=== PATIENT | female | born 1995 | race Caucasian/White ===

== ENCOUNTER 2023-05-08 16:39 | Outpatient (CLI) | payer OTHER, SELFPAY ==
[2023-05-08 17:10] LABS: Appearance Urine Clear (Clear); Bilirubin Urine Negative (Negative); Blood Urine Negative (Negative); Color Urine Yellow (Yellow); Glucose Urine Negative (Negative); Ketones Urine 4+ (Negative); Leukocyte Esterase Urine 1+ (Negative); Nitrite Urine Negative (Negative); Protein Urine Negative (Negative); Urobilinogen Urine 0.2 (0.2-1.0); pH Urine 6.5 (5.0-8.5)
[2023-05-08 17:30] LABS: Bacteria Urine Moderate; RBC Urine 0-2 (0-2); Squamous Epithelial Cell Urine Many (None-Few)
--- NOTE | 2023-05-08 18:26 | PM.OBLDTN ---
Documented by User: Sav Wiseharper 05/08/23 20:01 OB - Triage/Final Diagnosis Visit Information Time Seen by Provider: 18:27 Date Seen: 05/08/23 Date of evaluation: 05/17/23 Narrative: The patient is a 27 year old 1 para 0 at 35 3/7 weeks gestation by US, who presents to triage with painful contractions which has increased in intensity and frequency since 1 am this morning. She denies LOF, decreased movements and vaginal bleeding. She reports frequent urination and pressure in her bladder with urination. She denies dysuria, vaginal discharge and itching. She had a busy weekend with baby shower and has not been sleeping well lately. In triage patient was antonino every 2-4 min and palpates mild. NST- reactive. UA Pending culture. Vaginitis panel showed Yeast infection. Recommended OTC clotrimazole vaginal cream for 7 days. Pt was discharge home with instruction to come back to triage with worsening contractions, LOF or decreased movements. Evaluation Laboratory results: Laboratory Tests 05/08/23 05/08/23 05/08/23 Range/Units 18:13 17:59 17:03 Urine Color Yellow (Yellow) Urine Appearance Clear (Clear) Urine pH 6.5 (5.0-8.5) Ur Specific [place] 1.020 (1.000-1.030) Urine Protein Negative (Negative) Urine Glucose (UA) Negative (Negative) Urine Ketones 4+ A (Negative) Urine Blood Negative (Negative) Urine Nitrite Negative (Negative) Urine Bilirubin Negative (Negative) Urine Urobilinogen 0.2 (0.2-1.0) Ur Leukocyte Esterase 1+ A (Negative) Urine RBC 0-2 (0-2) Urine WBC 10-25 A (0-5) Ur Squamous Epith Cells Many A (None-Few) Urine Bacteria Moderate A (None) Vaginal Bacterial Vaginosis Pending Vaginal Nathalie species Pending Vag C. glabrata/krusei Pending Vag T. vaginalis Pending Group B Strep DNA Pending Fetus (Single) Heart Rate Baseline: 135 Final Diagnosis (1) Threatened labor: Status: Acute (2) Nathalie albicans infection: Status: Acute Documented by User: Larissa Hernandez CNM 05/08/23 21:19 OB - Triage/Final Diagnosis Visit Information Narrative: The patient is a 27 year old 1 para 0 at 35 3/7 weeks gestation by US, who presents to triage with painful contractions which has increased in intensity and frequency since 1 am this morning. She denies LOF, decreased movements and vaginal bleeding. She reports frequent urination and pressure in her bladder with urination. She denies dysuria, vaginal discharge and itching. She had a busy weekend with baby shower and has not been sleeping well lately. In triage patient was antonino every 2-4 min and palpates mild. NST- reactive. UA Pending culture, will call to discuss antibiotics as needed. Vaginitis panel showed Yeast infection. Recommended OTC clotrimazole vaginal cream for 7 days. Pt was discharge home with instruction to come back to triage with worsening contractions, LOF or decreased movements. I,?Larissa Hernandez APRN, CNM, was present for visit and have reviewed and agree with documentation by the Certified Nurse Midwifery Student. Final Diagnosis (1) Threatened labor: Status: Acute (2) Nathalie albicans infection: Status: Acute
[2023-05-08 19:03] LABS: Bacterial Vaginosis* NOT DETECTED (No Detected); Candida species DETECTED (No Detected)
[2023-05-08 19:04] LABS: Candida glab/krus NOT DETECTED (No Detected); Trichomonas vaginalis NOT DETECTED (No Detected)
--- NOTE | 2023-05-08 19:27 | PC.OBNST ---
NST Note NST Note Start: 05/08/23 17:07 Freq: ONCE Status: Active Protocol: Document 05/08/23 17:07 [facility] (Rec: 05/08/23 19:27 [facility] [id number]) NST Note 1 Para (# of births) 0 EDC 06/09/23 Gestational Age In Weeks & Days 35 Weeks & 3 Days Patient Presented with Complaint(s) of Contractions/cramping Other Complaints positive for yeast infection Reactive Yes Appropriate for Gestational Age Yes ALE Lo RN Date 05/08/23 Reactive Yes Appropriate for Gestational Age Yes ALE Keyes Date 05/08/23 OB NST charge Yes Complete NST Note via Write Note Yes The provider's electronic signature indicates the NST is reactive/appropriate for gestational age. *Note to provider: If an addendum is required, open the patient's chart and click on the note under the Nurse/Allied Health tab.
[2023-05-09 15:46] LABS: Strep B DNA Probe Negative (Negative)
[2023-05-09 16:08] LABS: Strep B Susceptibility Needed? No
== END 2023-05-08 19:29 | disposition home or self-care (01) ==
LOC: OB OUT 16:41 → OB 16:43
PROVIDERS: Visit Provider Advanced Practice Midwife
DX: O47.03 False labor before 37 completed weeks of gestation, third trimester (principal); Z3A.35 35 weeks gestation of pregnancy
CPT/HCPCS: 59025; 81001; 81003; 81513; 87081; 87086; 87481; 87653; 87661; G0463

== ENCOUNTER 2023-05-20 14:23 | Inpatient (IN) | payer OTHER, SELFPAY ==
[2023-05-20] VITALS (15 sets, daily range): BP systolic 132–155; BP diastolic 55–95; PULSE 79–132; RESP 16–18; TEMP 36.6–36.7; O2SAT 100
--- NOTE | 2023-05-20 17:04 | P.LDBA_ITS ---
Documented by User: Larissa Hernandez CNM 05/20/23 20:50 Subjective History of Present Illness Narrative: Patient is being admitted to Labor and Delivery for spontaneous onset of labor. She reports labor began yesterday but became more intense and regular at about 630 this morning. She is a 27 year old at 37.1 weeks gestation. Her full history and physical was dictated by Osman Cameron CNM on 05/17/23 Please see this for details. Specific Issues/Plans : Ruperto H&P done by Osman Cameron CNM on 05/17/23 Hydrocodone allergy 1. Hx of depression, anxiety, SAD. Denies any previous treatment, stable at transfer visit 2. Elevated BP at 11 wks from vertigo, resolved when the vertigo resolved. (Seen in the ER for dizziness) 3. Rubella NON immune. Needs vaccine PP 4. Marginal/low lying Placenta at 17 weeks, RESOLVED Marginal/low lying previa Placenta (0.3 cm from os) at 17.1 weeks noted following vaginal bleeding Normal with anatomy scan: placenta position: posterior, normal 5. Hx seasonal, allergy induced asthma. Hasn't used an inhaler in many years. Flu: Covid: Tdap: received RSV: declined Records reviewed from [facility]: Labs 10/24/22: B+ antibody screen neg Hgb 14.2 Platelets 343 Rubella non immune RPR neg Hep B neg HIV Neg GC/Chlamydia Neg urine culture neg Pap NIL Drug screen neg Hep C neg Inv[facility]ae neg TSH 11/21/22 0.44 HgbA1C 5.3 03/17/23 28 wk labs: Hgb 11.6 1 hr GCT 134 Rpr Neg 10/24/22 Viability u/s. 8.4 weeks by LMP 7.3 weeks by u/s. Julian 06/09/23 by u/s 12/31/22 limited u/s Breech Placenta edge 0.3 cm from os at 17.1 wks 01/26/23 vtx. Posterior placenta. Normal anatomy scan OB - Problem Based A/P Additional Plan (1) Pain during labor: Status: Acute (2) 37 weeks gestation of : Status: Acute Plan 27 yr at 37.1 weeks gestation? complicated by: ?Anxiety, depression, roula albicans infection in Labor type: Spontaneous, Active labor? Category 1 FHR pattern.?? Labor complicated by: Elevated BP GBS negative ? PLAN:? 1. Routine intrapartum cares as ordered. Continue with expectant management? 2. Monitoring per policy, intermittent at this time 3. Planning unmedicated . Desires water . Consent signed. Hep C negative. Candidate for analgesia of choice.?? 4. Patient encouraged to reposition and ambulate to promote physiologic labor and .? 5. Elevated Blood pressure on admission. Monitored but BP remained mild range, Pre- eclampsia labs ordered. 6. Anticipate ? I,?Larissa Hernandez APRN, CNM, was present for visit and have reviewed and agree with documentation by the Certified Nurse Midwifery Student. OB Exam Physical Exam Vital signs: Temp Pulse BP Pulse Ox 98 F 79 136/86 100 05/20/23 16:46 05/20/23 16:08 05/20/23 16:08 05/20/23 14:14 Narrative: Vitals Reviewed Constitutional:? Alert and oriented x3 HEENT:? Normocephalic, atraumatic Neck:? Supple Lungs:? Clear to auscultation bilaterally Heart:? Regular rate and rhythm, no murmur, rub or gallop Abdomen:? Soft, nontender, and gravid. Vertex by Pankaj's, confirmed with cervical exam. Extremities:? No edema or erythema Cervix: 6 cm/90%/0 station/vertex NST: 125 bpm/moderate variability/15x15 accelerations/no decelerations/co ntractions every 2-4 minutes Detailed Labor and Delivery Exam Patient Gravid: Yes Documented by User: Sav Arcos 05/20/23 20:45 Subjective History of Present Illness Narrative: Patient is being admitted to Labor and Delivery for spontaneous onset of labor. She is a 27 year old at 37.1 weeks gestation. Her full history and physical was dictated by Osman Cameron CNM on 05/17/23 Please see this for details. Specific Issues/Plans : Ruperto H&P done by Osman Cameron CNM on 05/17/23 Hydrocodone allergy 1. Hx of depression, anxiety, SAD. Denies any previous treatment, stable at transfer visit 2. Elevated BP at 11 wks from vertigo, resolved when the vertigo resolved. (Seen in the ER for dizziness) 3. Rubella NON immune. Needs vaccine PP 4. Marginal/low lying Placenta at 17 weeks, RESOLVED Marginal/low lying previa Placenta (0.3 cm from os) at 17.1 weeks noted following vaginal bleeding Normal with anatomy scan: placenta position: posterior, normal 5. Hx seasonal, allergy induced asthma. Hasn't used an inhaler in many years. Flu: Covid: Tdap: received RSV: declined Records reviewed from [facility]: Labs 10/24/22: B+ antibody screen neg Hgb 14.2 Platelets 343 Rubella non immune RPR neg Hep B neg HIV Neg GC/Chlamydia Neg urine culture neg Pap NIL Drug screen neg Hep C neg Inv[facility]ae neg TSH 11/21/22 0.44 HgbA1C 5.3 03/17/23 28 wk labs: Hgb 11.6 1 hr GCT 134 Rpr Neg 10/24/22 Viability u/s. 8.4 weeks by LMP 7.3 weeks by u/s. Julian 06/09/23 by u/s 12/31/22 limited u/s Breech Placenta edge 0.3 cm from os at 17.1 wks 01/26/23 vtx. Posterior placenta. Normal anatomy scan OB - Problem Based A/P Additional Plan (1) Pain during labor: Status: Acute (2) 37 weeks gestation of : Status: Acute Plan 27 yr at 37.1 weeks gestation? complicated by: ?Anxiety, depression, roula albicans infection in Labor type: Spontaneous, Active labor? Category 1 FHR pattern.?? Labor complicated by: Pre- eclampsia GBS negative ? PLAN:? 1. Routine intrapartum cares as ordered. Continue with expectant management? 2. Monitoring per policy, intermittent 3. Planning unmedicated . Desires water . Consent signed. Hep C negative. Candidate for analgesia of choice.?? 4. Patient encouraged to reposition and ambulate to promote physiologic labor and .? 5. Elevated Blood pressure on admission. 6. Pre- eclampsia labs ordered 7. Anticipate ? Delivery/Labor/Induction Plan Plan: expectant management OB Result Labs Blood Type: B (+) positive
[2023-05-20 17:58] LABS: Hematocrit 35.2 % (33.0-51.0); Hemoglobin* 11.5 gm/dL (12.0-16.0); Mean Corpuscular HGB Conc 33 gm/dL (32-36); Mean Corpuscular Hemoglobin 28 pg (26-34); Mean Corpuscular Volume 84 fL (80-100); Platelet Count* 292 K/uL (140-440); Red Blood Count 4.17 m/uL (4.00-5.20); White Blood Count* 14.65 K/uL (4.50-11.00)
[2023-05-20] MEDS: LACTATED RINGERS 1000 ML 1,000 ML 1200 ML IV (17:59)
[2023-05-20 18:01] LABS: Slide Review Reflex No
[2023-05-20 18:03] LABS: Total Protein Urine 10 mg/dL
[2023-05-20 18:04] LABS: Creatinine Urine 27.9 mg/dL
[2023-05-20 18:22] LABS: Alanine Aminotransferase* 12 U/L (4-35); Aspartate Amino Transferase* 18 U/L (12-35); Blood Urea Nitrogen* 6 mg/dL (5-24); Creatinine* 0.5 mg/dL (0.5-1.5); Estimated Glomerular Filt Rate 133 ml/min
[2023-05-20] MEDS: lidocaine HCL 2 % JELLY (TOP) STERILE 6 ML TOPICAL (18:47)
[2023-05-20] MEDS: OXYTOCIN 30 unit/500 ML in NS 30 UNIT/500 ML BAG 300 UNIT IVPB (18:59)
[2023-05-20] MEDS: LIDOCAINE 1 % PF 30 ML INJECTION (19:14)
--- NOTE | 2023-05-20 19:40 | W.PM.OBVAGDE ---
Documented by User: Larissa Hernandez CNM 05/20/23 20:59 OB Procedure Vag Delivery Mother Details Mother Details: The patient is a 27 year-old, 1, Para 0, admitted on 05/20/23 at 37.1 weeks gestation. Additional Details Waterbirth: No Labor Onset: 06:30 Complete: 18:18 Pushin:13 Heart: heart tones during second stage were reassuring with minimal variability. Delivery Details Delivery Details: Patient was admitted for spontaneous onset of labor and progressed with AROM augmentation. AROM with clear fluid. She labored well for some time in the tub but had considered and epidural. She got out of the tub and transitioned to laboring on the bed. Patient began pushing with urge at 1813, found to be complete with check at 1818. She declined an epidural at this time. of a viable female at semi-mosqueda position in bed. Vertex delivered OA. No nuchal cord or shoulder. Body delivered easily and without incident. Infant passed to mothers abdomen with a vigorous cry. Cord was clamped and cut at > 5 minutes. APGARS were 8 at one minute and 9 at five minutes respectively. Mouth was bulb suctioned. Intact placenta with a 3 vessel cord delivered spontaneously at 1911. Fundus firm. Small 2nd degree identified and repaired in typical fashion. QBL 550 cc. Mother and baby stable; mother plans to breastfeed. weight pending. I,?Larissa Hernandez APRN, CNM, was present for visit and have reviewed and agree with documentation by the Certified Nurse Midwifery Student. 1 Minute Interval Total Score: 8 5 Minute Interval Total Score: 9 Additional Details Placenta Delivery Time: 19:11 Placental Delivery Description: Spontaneous Delivery repair: Vicryl Procedure Done: Global Blood Loss: 550 Laceration: Perineal - 2nd Degree Blood Loss Measurement Type: QBL Sponge/Need Count Correct: Yes Cord Vessel Description: 3 Vessels Event Summary Status: Mother and infant were stable after delivery. Pt diagnosed with pre-eclampsia without SF in labor based on P/C ratio Disposition: floor Documented by User: Sav Arcos 05/20/23 20:40 OB Procedure Vag Delivery Mother Details : 1 Para: 1 Weeks Gestation: 37.1 Admission Date: 05/20/23 Additional Details Amniotic Membrane Status: AROM Amniotic Membrane Rupture Date: 05/20/23 Amniotic Membrane Rupture Time: 16:40 Amniotic Membrane Fluid Description: Clear Analgesia/Anesthesia Type: Nitrous Oxide Waterbirth: Yes Pitcoin: No Intrapartal Events: None Delivery augmentation: rupture of membranes Delivery Details Delivery Date: 05/20/23 Delivery Time: 18:51 Route of delivery: Gender: Female Viability: Alive; Heart Rate Present Position at Delivery: OA Delivery Details: Patient was admitted for spontanous onset of labor and progressed with AROM augmentation. AROM with clear fluid. Patient was complete at 1818 and pushing at 1851 . of a viable female at semi-mosqueda position in bed. Vertex delivered OA. No nuchal cord or shoulder. Body delivered easily and without incident. passed to mothers abdomen with a vigorous cry. Cord was clamped and cut at > 5 minutes. APGARS were 8 at one minute and 9 at five minutes respectively. Mouth was bulb suctioned. Intact placenta with a 3 vessel cord delivered spontaneously at 1911 . Fundus firm. Small 2nd degree identified and repaired in typical fashion. QBL 550 cc. Mother and baby stable; mother plans to breastfeed. weight pending. Additional Details Shoulder Dystocia: No Event Summary Status: Mother and were stable after delivery. Pt diagnosed with pre-eclampsia in labor based on P/C ration
[2023-05-20] MEDS: ACETAMINOPHEN 500 MG TABLET 1000 MG PO (22:47)
[2023-05-21 00:13] VITALS: BP 150/88; PULSE 78; RESP 16; TEMP 36.7; O2SAT 97
[2023-05-21 04:10] VITALS: BP 122/72; PULSE 105; RESP 16; TEMP 36.7; O2SAT 97
[2023-05-21] MEDS: IBUPROFEN 600 MG TABLET PO ×2 (07:21→17:00)
[2023-05-21 08:22] VITALS: BP 132/79; PULSE 103; RESP 16; TEMP 37.2; O2SAT 97
[2023-05-21] MEDS: DOCUSATE SODIUM 100 MG CAPSULE PO (08:29)
--- NOTE | 2023-05-21 10:17 | P.DS_ITS ---
DS: Providers Provider Date Seen: 05/21/23 Date of admission: 05/20/23 14:23 Primary care physician: Not a Local Provider Admitting Clinician: Larissa Hernandez CNM Attending Physician on discharge: Larissa Hernandez CNM DS: Diagnosis Discharge Diagnosis (1) care and examination immediately after delivery: Status: Acute (2) Pre-eclampsia affecting puerperium: Status: Acute (3) Lactating mother: Status: Acute Exam Narrative: Exam Narrative: GENERAL APPEARANCE:? normal affect, alert, no distress MOOD:? appropriate CHEST:? clear to auscultation HEART:? regular rate and rhythm ABDOMEN:? soft, non-tender the uterine fundus is At Umbilicus, Midline and is appropriate for the stage of recovery. PERINEUM:? mild edema of the perineum, there is a Perineal Laceration,?2nd degree, that is healing well. EXTREMITIES:? normal and no edema Const: Vital Signs, click to edit/add: Vital Signs - 24 hr 05/20/23 14:14 05/20/23 14:34 05/20/23 15:52 Temperature Pulse Rate 102 H 90 80 Pulse Rate [Pulse Oximeter] Respiratory Rate Blood Pressure 145/95 H 145/93 H 150/80 H Blood Pressure [Ri ght Arm] Pulse Oximetry 100 [facility] 05/20/23 16:08 05/20/23 16:46 05/20/23 17:25 Temperature 98.1 F 98 F 97.9 F Pulse Rate 79 132 H Pulse Rate [Pulse Oximeter] Respiratory Rate 16 18 Blood Pressure 136/86 150/72 H Blood Pressure [Ri ght Arm] Pulse Oximetry Oxygen Delivery [facility] 05/20/23 18:05 05/20/23 19:12 05/20/23 19:12 Temperature Pulse Rate 84 88 Pulse Rate [Pulse Oximeter] Respiratory Rate 16 16 Blood Pressure 144/83 H 135/68 Blood Pressure [Ri ght Arm] Pulse Oximetry Oxygen Delivery [facility] 05/20/23 19:27 05/20/23 19:27 05/20/23 19:40 Temperature Pulse Rate 101 H 88 Pulse Rate [Pulse Oximeter] Respiratory Rate 16 Blood Pressure 135/74 132/75 Blood Pressure [Ri ght Arm] Pulse Oximetry Oxygen Delivery [facility] 05/20/23 19:55 05/20/23 20:10 05/20/23 20:25 Temperature Pulse Rate 94 86 88 Pulse Rate [Pulse Oximeter] Respiratory Rate Blood Pressure 155/55 H 146/70 H 136/79 Blood Pressure [Ri ght Arm] Pulse Oximetry Oxygen Delivery [facility] 05/20/23 20:40 05/20/23 20:55 05/21/23 00:13 Temperature 98.1 F Pulse Rate 90 86 Pulse Rate [Pulse Oximeter] 78 Respiratory Rate 16 Blood Pressure 135/80 140/82 H Blood Pressure [Ri ght Arm] 150/88 H Pulse Oximetry 97 Oxygen Delivery [facility] Room Air 05/21/23 04:10 05/21/23 08:22 Temperature 98.1 F 98.9 F Pulse Rate Pulse Rate [Pulse Oximeter] 105 H 103 H Respiratory Rate 16 16 Blood Pressure Blood Pressure [Ri ght Arm] 122/72 132/79 Pulse Oximetry 97 97 Oxygen Delivery [facility] Room Air Room Air OB - DS: Summary Hospital Course Hospital Course: Eva is a 27 y.o. G 1 P 1 who was admitted to L & D for spontaneous onset of labor. ?She had a NVD that was uncomplicated. The patient feels well. ?The pain is well controlled with current medications. ?She has no new complaints. ?She is not planning on . the patient has done well.? Vitals have been stable.? She has remained afebrile.? Has a good appetite, is tolerating a general diet. ?She is voiding without difficulty.? She is passing gas and has not had a bowel movement.? She is ambulating and denies any dizziness.? Has small amount of rubra lochia. Baby was transferred early this morning for concern for abnormal finding on spine/sacral dimple region. Patient is coping well but does desire to be with baby as soon as medically stable. She is planning oral combined contraceptive for prevention. Problems: Pre-eclampsia diagnosed in labor/ plan: Discharge home, no sooner than 1600 as long as she has had 12 hours of stable BP's. If BP become elevated again, I would recommend continued monitoring overnight with discharge tomorrow. Dr. Roach aware and agrees with plan. Follow up in 2 weeks and 6 weeks. , may see if needed Hgb 11.5. Pre-E diagnosed by elevated BP greater than 4 hours apart with elevated p/c ratio Labs WNL Discharge home with BP cuff if does not already have one. Pt reports she has one, recommended she bring in to verify readings. Follow up in 3-5 days Call for signs/symptoms of preeclampsia Peripartum Data delivery method: Vaginal Laceration description: Perineal - 2nd Degree complications: none [place] Infant Gender: Female Discharge Plan: [facility]charge Functional status at discharge: independent ambulation Overall status at discharge: patient is progressing back to baseline Time Spent with Patient Time attestation: Total time spent providing and/or coordinating discharge services: Discharge Plan Discharge Disposition: Home, Self-Care Date of Admission: 05/20/23 14:23 Attending Provider on Discharge: Larissa Hernandez Primary Care Provider: Provider,Not a Local Condition: Stable Anticipated Discharge Date/Time: 05/21/23 16:30 Discharge Medications: New docusate sodium 100 mg Capsule 100 mg PO DAILY Qty: 90 0RF ibuprofen 600 mg Tablet 600 mg PO Q6H PRNQty: 60 0RF acetaminophen 500 mg Tablet 1,000 mg PO Q6H PRNQty: 0 0RF Continued fexofenadine [Unique Allergy] 60 mg tablet 60 mg PO BID One A Day Women's DHA 28 mg iron- 800 mcg combo pack PO diphenhydramine-acetaminophen [Tylenol PM Extra Strength] 25-500 mg tablet 1 tab PO QHS PRN Discharge Orders: Discharge Order (Routine); Ordered 05/21/23 Ordered By: Larissa Hernandez Patient Education: OB Over the Counter Medication Information, OB Vaginal/Breast Feeding Additional Instructions: Discharge instructions were reviewed with the patient including signs and symptoms of infection and home going medications Nothing vaginally for 6 weeks: no tampons or intercourse Off Work or School for 6 weeks Follow [facility] for a BP check?in 3-5 days Call with BP greater than or equal to 160/110 2-week visit: discuss infant feeding concerns, review control options and screen for anxiety/depression. 6-week visit for an annual exam. consultation services are available to all mothers and babies for the first year after delivery.? To make an appointment, please call [phone]. Activity Level: Activity as Tolerated Discharge Diet: Regular Follow Up Appointments: [facility] [Provider Group] Forms: [employer] Info Instructions
[2023-05-21 12:24] VITALS: BP 128/78; PULSE 99; RESP 16; O2SAT 97
[2023-05-21 17:01] VITALS: BP 144/89; PULSE 100
[2023-05-21 17:24] VITALS: BP 145/88
[2023-05-23 16:34] LABS: Rapid Plasma Reagin (RPR) Non Reactive (Non Reactive)
== END 2023-05-21 17:57 | disposition home or self-care (01) | DRG 807 ==
LOC: OB OUT 14:23 → OB 14:23
PROVIDERS: Admitting Provider Advanced Practice Midwife; Visit Provider Advanced Practice Midwife
DX: O14.94 Unspecified pre-eclampsia, complicating childbirth (principal); Z37.0 Single live birth; O70.1 Second degree perineal laceration during delivery; Z3A.37 37 weeks gestation of pregnancy; Z86.59 Personal history of other mental and behavioral disorders
CPT/HCPCS: 36415; 82565; 82570; 84156; 84450; 84460; 84520; 85027; 86592; A9270; J2001; J2371; J7120

== ENCOUNTER 2023-05-26 19:17 | Outpatient (CLI) | payer OTHER, SELFPAY ==
[2023-05-26 19:29] VITALS: BMI 25.0
[2023-05-26 19:50] VITALS: BP 139/85; PULSE 69
[2023-05-26 20:06] VITALS: PULSE 73
--- NOTE | 2023-05-26 20:11 | P.OBLDTN_ITS ---
OB - Triage/Final Diagnosis Visit Information Narrative: Eva is a 27 year old 1 para 1 status post vaginal delivery on 05/20/2023 that presents today with concerns for elevated blood pressure of greater than 160/100 at home. Patient called me earlier this evening with mildly elevated BP at home of 140/100's. She reports her blood pressures have been consistently 130/80's at home. She then repeated it and called with a higher BP reading. I recommended she come in for evaluation and was on site to see patient in Labor and Delivery. Her was complicated by elevated blood pressures during labor and she was diagnosed with Pre-e. Her blood pressures were initially mild range after delivery but improved. She was discharged at 24 hours due to desire to be at the NICU with her baby. On arrival, she reports home BP of 170/100. She denies headache, blurred vision, epigastric pain, or nausea/vomiting. She initially had some swelling after delivery but it has since improved. She has had some episodes of vertigo which she had in early but it resolved. When she was evaluated for it she did have some elevated BP but this resolved when the vertigo resolved. She reports that she had a busy day with appointments and was just getting settled back home. Her has been very supportive and helpful at home. Baby was in the NICU and discharged Monday. She feels some of the stress from adjusting to baby at home have improved over the last few days. She denies any additional concerns. BP on admission is 139/85, repeat of 136/88. Plan discharge home with continued BP monitoring. Patient agrees with plan. Reason for evaluation: other Evaluation Vital signs: Vital Signs - 24 hr 05/26/23 19:50 05/26/23 20:06 Pulse Rate 69 73 Blood Pressure 139/85 Comments: Vitals Reviewed Constitutional:? Alert and oriented x3 HEENT:? Normocephalic, atraumatic Neck:? Supple Lungs:? Clear to auscultation bilaterally Heart:? Regular rate and rhythm, no murmur, rub or gallop Extremities:? No edema or erythema Final Diagnosis (1) Pre-eclampsia affecting puerperium: Status: Acute Problem details: Blood pressures improving since delivery. Will continue to monitor twice daily a t home. Call with elevated BP of greater than 140/90's or come in and be evaluated in ED if 160/110's. Reviewed symptoms to monitor and when to be concerned. (2) Generalized anxiety disorder: Status: Acute
[2023-05-26 20:25] VITALS: BP 136/88; PULSE 69
== END 2023-05-26 20:35 | disposition home or self-care (01) ==
LOC: OB OUT 19:19 → OB 19:20
PROVIDERS: Visit Provider Advanced Practice Midwife
DX: O14.95 Unspecified pre-eclampsia, complicating the puerperium (principal); F41.1 Generalized anxiety disorder
CPT/HCPCS: G0463